=== PATIENT | female | born 1985 | race Caucasian/White ===

== ENCOUNTER 2019-09-08 10:35 | Emergency (ER) | payer OTHER, SELFPAY ==
--- NOTE | ~2019-09-08 | XR_ITS ---
EXAMINATION: XR ankle LT min 3V DATE: 09/08/2019 11:30 INDICATION: Left ankle pain TECHNIQUE: Anteroposterior, lateral, mortise, and additional oblique view of the ankle were obtained. COMPARISON: None. FINDINGS: There is no fracture, dislocation, or subluxation. The bones and joint spaces are normal. D orsal and plantar calcaneal enthesophytes are noted. There appear to be diffuse skin calcifications t hroughout the distal leg. IMPRESSION: 1. No acute osseous abnormality. Reviewed, dictated and finalized at location A.
--- NOTE | 2019-09-08 11:04 | ED.GENADULT ---
HPI - General Adult General Chief complaint: Extremity Injury, Lower Stated complaint: left ankle Time Seen by Provider: 09/08/19 11:13 Source: patient Mode of arrival: ambulatory Limitations: no limitations History of Present Illness HPI narrative: 34-year-old female patient presents to the [facility] with complaints of left ankle pain. Patient states about a week and a half ago she was walking in the yard and twisted her left ankle. Patient states that she did the rest, ice, compression and elevation of the ankle and states that over time it did get better. Patient states that she was walking in the grocery store this past Saturday and heard a pop to her left ankle and started having pain. Patient states that most of the pain is on the lateral side of the left ankle and goes up to the mid calf. Patient states she has been taking Tylenol for her pain. Patient states she has wrapped it at times. Patient denies any numbness or tingling to the toes. Related Data Home Medications Medication Instructions Recorded Confirmed Colace 09/08/19 Miralax 09/08/19 Prempro 09/08/19 Zyrtec 09/08/19 albuterol sulfate 09/08/19 amlodipine 09/08/19 biotin 09/08/19 bupropion HCl [Wellbutrin SR] PO 09/08/19 bupropion HCl [Wellbutrin SR] PO 09/08/19 clonidine 1 patch TRANSDERMAL WEEKLY 09/08/19 09/08/19 fluoxetine 09/08/19 hydrochlorothiazide 09/08/19 hydroxyzine HCl 09/08/19 lamotrigine [Lamictal] 09/08/19 lamotrigine [Lamictal] 09/08/19 levothyroxine 09/08/19 losartan 09/08/19 metformin mg 09/08/19 metformin mg 09/08/19 montelukast [Singulair] mg 09/08/19 naltrexone mg 09/08/19 olanzapine 10 mg PO DAILY 09/08/19 09/08/19 phentermine mg 09/08/19 propranolol 09/08/19 spironolactone 09/08/19 trazodone 09/08/19 Allergies Allergy/AdvReac Type Severity Reaction Status Date / Time No Known Allergies Allergy Verified 09/08/19 11:14 Review of Systems Review of Systems: Narrative: CONSTITUTIONAL: Denies fever, chills, or sweats. EYES: Denies visual changes, redness, or discharge. ENT: Denies rhinorrhea, congestion, sore throat, or otalgia. CARDIOVASCULAR: Denies chest pain, palpitations, or edema. RESPIRATORY: Denies cough or dyspnea. GASTROINTESTINAL: Denies abdominal pain, nausea, vomiting, or diarrhea. GENITOURINARY: Denies dysuria or hematuria. SKIN: Denies rash or itching. MUSCULOSKELETAL: Denies back pain, joint pain, or myalgia. Positive left ankle pain NEUROLOGIC: Denies headache, numbness, or weakness. PSYCHIATRIC: Denies anxiety or depression. PMFSH Comments At the time of my signature I agree with nursing past medical history, surgical, social, and family history. There is no relevant family history pertinent to the presenting complaint. Exam Narrative: Exam Narrative: GENERAL: Well-appearing, well-nourished, and in no acute distress. HEAD: Normocephalic, atraumatic. EYES: PERRLA and EOMI. ENT: Nares clear, no rhinorrhea or epistaxis. Mucous membranes moist. NECK: Supple. No lymphadenopathy CHEST: Clear to auscultation. No respiratory distress. HEART: Regular rate and rhythm. No murmur heard. Normal peripheral pulses. ABDOMEN: Soft, nontender, nondistended, normal active bowel sounds. EXTREMITIES: Patient is able to bear weight and ambulate but has increased pain to the left ankle. The L ankle is without obvious asymmetry or deformity when compared to the R ankle. Patient can flex/extend, invert/jocelyn. No obvious surface trauma, ecchymosis, or soft tissue swelling. No body tenderness to palpation over the medial or lateral malleolus. Anterior talofibular ligament, posterior talofibular ligament, slight tenderness noted over the calcaneofibular ligament. No tenderness or deformity of the midfoot or over the proximal fifth metatarsal. Good DP and posterior tibial pulses and sensation to light touch normal. Talar tilt test is negative for ligament laxity to valgus or vargus stress. Negative ant
[2019-09-08 11:07] VITALS: BP 122/77; PULSE 91; RESP 16; TEMP 36; O2SAT 100
== END 2019-09-08 11:56 | disposition home or self-care (01) ==
PROVIDERS: Emergency Provider Nurse Practitioner Family
DX: S93.402A Sprain of unspecified ligament of left ankle, initial encounter (principal); I10 Essential (primary) hypertension; J45.909 Unspecified asthma, uncomplicated; Z98.84 Bariatric surgery status; F31.9 Bipolar disorder, unspecified; Z79.84 Long term (current) use of oral hypoglycemic drugs; X50.9XXA Other and unspecified overexertion or strenuous movements or postures, initial encounter
CPT/HCPCS: 73610; 99203; G0463